=== PATIENT | female | born 1990 | race African-American/Black ===

== ENCOUNTER 2020-02-18 12:58 | Emergency (ER) | payer SELFPAY ==
[~2020-02-18] VITALS: Ht 162.6 cm; Wt 61.2 kg
[2020-02-18 13:05] VITALS: BP 98/68
[2020-02-18] MEDS ORDERED: Ketorolac 30mg Inj IV ONE (13:15)
[2020-02-18] MEDS ORDERED: Azithromycin 250mg tab ORAL ONE (13:30)
[2020-02-18] MEDS ORDERED: cefTRIAXone 1 GM in NS 55 ML IVPB ONE (13:30)
[2020-02-18 13:52] LABS: BASOPHILS % (AUTO) 2.3 % (0.0-2.0); EOSINOPHILS % (AUTO) 0.7 % (0.0-3.0); HEMATOCRIT 35.4 % (37.0-47.0); LYMPHOCYTES % (AUTO) 26.8 % (20.0-45.0); MEAN CORPUSCULAR VOLUME 94 FL (80-99); MONOCYTES % (AUTO) 9.4 % (1.0-10.0); NEUTROPHILS % (AUTO) 60.7 % (45.0-75.0); PLATELET COUNT 226 K/UL (150-450); RED BLOOD COUNT 3.76 M/UL (4.20-5.40); RED CELL DISTRIBUTION WIDTH 11.9 % (11.6-14.8)
[2020-02-18 13:54] LABS: APPEARANCE,URINE CLEAR; BILIRUBIN, URINE NEGATIVE (NEGATIVE); COLOR,URINE PALE YELLOW; GLUCOSE, URINE (UA) NEGATIVE (NEGATIVE); KETONES,URINE NEGATIVE (NEGATIVE); LEUKOCYTE ESTERASE ,URINE NEGATIVE (NEGATIVE); NITRITE,URINE NEGATIVE (NEGATIVE); PH,URINE 5 (4.5-8.0); PROTEIN,URINE NEGATIVE (NEGATIVE); UROBILINOGEN,URINE NORMAL MG/DL (0.0-1.0)
[2020-02-18 14:11] LABS: ANION GAP 10 mmol/L (5-15); BLOOD UREA NITROGEN 10 mg/dL (7-18); CARBON DIOXIDE 23 MMOL/L (21-32); CHLORIDE 104 MMOL/L (98-107); CREATININE 0.6 MG/DL (0.55-1.30); POTASSIUM 3.7 MMOL/L (3.5-5.1); SODIUM 137 MMOL/L (136-145)
[2020-02-18 14:16] LABS: ALANINE AMINOTRANSFERASE 14 U/L (12-78); ALBUMIN 3.9 G/DL (3.4-5.0); ALKALINE PHOSPHATASE 44 U/L (46-116); ASPARTATE AMINO TRANSFERASE 19 U/L (15-37); BILIRUBIN,TOTAL 0.4 MG/DL (0.2-1.0)
--- NOTE | 2020-02-18 14:48 | Emergency Room Report ---
History of Present Illness General Chief Complaint: Nausea Source: Patient Present Illness HPI 29-year-old female with no significant past medical history here complaining of 4 days of diffuse abdominal pain, few bouts of nonbloody emesis and feeling nauseated. Denies any diarrhea or blood in stool. Denies any blood in emesis. Denies fever and chills, cough and congestion, shortness of breath, headache or dizziness. Reports that the pain started after had some bad reaction to use. Patient also wants to be tested for STDs reports that as she walked away from the people who gave her mac & cheese she overheard that they poisoned it with either chlamydia or gonorrhea. Patient cannot understand that this is not how to contract STDs. Patient denies any sexual harassment or being non alert or abused. Allergies: Coded Allergies: No Known Allergies (Unverified , 02/18/20) COVID-19 Screening Contact w/high risk pt: No Experienced COVID-19 symptoms?: No COVID-19 Testing performed END POLISHER: No Patient History Past Medical History: see triage record Past Surgical History: none Pertinent Family History: none Last Menstrual Period: 02/10/20 Now: No Immunizations: UTD Reviewed Nursing Documentation: PMH: Agreed; PSxH: Agreed Nursing Documentation-PMH Past Medical History: No Stated History Review of Systems All Other Systems: negative except mentioned in HPI Physical Exam Vital Signs Date Time Temp Pulse Resp B/P (MAP) Pulse Ox O2 Delivery O2 Flow Rate FiO2 02/18/20 13:01 98.2 76 17 98/68 (78) 98 Room Air Sp02 EP Interpretation: reviewed, normal General Appearance: no apparent distress, alert, GCS 15, non-toxic Head: normocephalic, atraumatic Eyes: bilateral eye normal inspection, bilateral eye PERRL ENT: hearing grossly normal, normal pharynx, no angioedema, normal voice Neck: full range of motion, supple/symm/no masses Respiratory: chest non-tender, lungs clear, normal breath sounds, speaking full sentences Cardiovascular #1: regular rate, rhythm, no edema Gastrointestinal: normal bowel sounds, non tender, soft, no mass, no peritonitis, non-distended, no guarding, no hernia, no rebound Rectal: deferred Genitourinary: no CVA tenderness Musculoskeletal: back normal, no calf tenderness Neurologic: alert, motor strength/tone normal, oriented x3, sensory intact, responsive, speech normal Psychiatric: judgement/insight normal, memory normal, mood/affect normal, no suicidal/homicidal ideation Skin: no rash Lymphatic: no adenopathy Medical Decision Making PA Attestation All diagnoses and treatment plans were reviewed and discussed with my supervising physician Dr. Camejo Diagnostic Impression: Primary Impression: Gastroenteritis Additional Impression: STD exposure ER Course 29-year-old female with no significant past medical history here complaining of 4 days of diffuse abdominal pain, few bouts of nonbloody emesis and feeling nauseated. Denies any diarrhea or blood in stool. Denies any blood in emesis. Denies fever and chills, cough and congestion, shortness of breath, headache or dizziness. Reports that the pain started after had some bad reaction to use. Patient also wants to be tested for STDs reports that as she walked away from the people who gave her mac & cheese she overheard that they poisoned it with either chlamydia or gonorrhea. Patient cannot understand that this is not how to contract STDs. Patient denies any sexual harassment or being non alert or abused. Ddx considered but are not limited to: appendicitis, cholecystis, gastritis, gastroenteritis, UTI, pyelonephritis, SBO, diverticulitis, influenza with GI manifestation, PID Vital signs: are WNL, pt. is afebrile H&PE are most consistent with: Gastroenteritis, STD exposure ORDERS: CBC, CMP, UA, urine test, tox EtOH level, lipase, Mylanta as patient requested, Zofran, omeprazole ED INTERVENTIONS: NS bolus, Zofran, Pepcid, Toradol, Rocephin, azithromycin At this time no imaging needed patient is nontender to palpation of the abdomen and vital signs are within normal limits and CBC and CMP are within normal limits. DISCHARGE: At this time pt. is stable for d/c to home. Will provide printed patient care instructions, and any necessary prescriptions. Care plan and follow up instructions have been discussed with the patient prior to discharge. Patient take medication as directed, follow primary care provider, increase oral hydration,if worsening symptoms return to emergency room Last Vital Signs Date Time Temp Pulse Resp B/P (MAP) Pulse Ox O2 Delivery O2 Flow Rate FiO2 02/18/20 13:05 98.2 76 17 98/68 98 Room Air Disposition: HOME, SELF-CARE Condition: Stable Scripts Mag Hydrox/Aluminum Hyd/Simeth (Mylanta Maximum Strength Liq) 355 Ml Oral.susp 10 ML PO DAILY, #400 ML Prov: Claudia Greenwood 02/18/20 Omeprazole (OMEPRAZOLE) 20 Mg Tablet.dr 20 MG ORAL DAILY, #30 TAB Prov: Claudia Greenwood 02/18/20 Ondansetron (Zofran) 4 Mg Tablet 4 MG ORAL Q6H PRN for Nausea & Vomiting, #10 TAB Prov: Claudia Greenwood 02/18/20 Referrals: NOT CHOSEN IPA/,REFERRING (PCP) Patient Instructions: Nausea and Vomiting, Adult Additional Instructions: Take medication as directed, follow-up with your primary care provider, increase oral hydration, if worsening symptoms return to the emergency room Claudia Greenwood Feb 18, 2020 14:48
[2020-02-18] MEDS ORDERED: OMEPRAZOLE20 M3 ORAL (14:49)
[2020-02-18] MEDS ORDERED: ZOFRAN4 M1 ORAL (14:49)
[2020-02-18] MEDS ORDERED: MYLANTA MAXIMU355 ML PO (14:53)
[2020-02-18 15:07] VITALS: BP 100/67
== END 2020-02-18 15:09 | disposition home or self-care (01) ==
LOC: EMR 13:20
DX: K52.9 Noninfective gastroenteritis and colitis, unspecified (principal); Z20.2 Contact with and (suspected) exposure to infections with a predominantly sexual mode of transmission
CPT/HCPCS: 36415; 80053; 80307; 81003; 81025; 83690; 85025; 85610; 85730; 96365; 96375; 99284; G0480; J0696; J1885; J2405; J7030; S0028